=== PATIENT | female | born 1980 | race Caucasian/White ===

== ENCOUNTER → 2024-08-28 09:44 | Outpatient (REF) | payer OTHER, SELFPAY | LOC: RAD 09:44 | PROVIDERS: ATTENDING PHYSICIAN Nurse Practitioner Family; FAMILY PHYSICIAN Emergency Medicine | DX: M79.605 Pain in left leg (principal); Z91.81 History of falling | CPT/HCPCS: 73552 ==

== ENCOUNTER → 2024-09-03 12:57 | Outpatient (REF) | payer OTHER, SELFPAY | LOC: HWRAD 12:57 | PROVIDERS: ATTENDING PHYSICIAN Nurse Practitioner Family | DX: M79.605 Pain in left leg (principal) | CPT/HCPCS: 76882 ==

== ENCOUNTER 2025-03-17 12:02 | Emergency (ER) | payer OTHER, SELFPAY ==
[2025-03-17 12:05] VITALS: BP 104/65
[2025-03-17 12:19] LABS: Hematocrit 41.4 % (37.0-47.0); Hemoglobin 13.8 g/dL (12.0-16.0); Mean Corp Hgb Conc. 33.3 g/dL (33.0-37.0); Mean Corpuscular Volume 86.3 fL (81.0-99.0); Nucleated Red Blood Cells % 0 %; Platelet Count 204 10^3/uL (130-400); Red Cell Dist. Width 13.0 % (11.5-14.5)
[2025-03-17 12:50] VITALS: BMI 24.2
[2025-03-17 12:52] LABS: ALT (SGPT) 18 U/L (0-35); AST (SGOT) 24 U/L (14-36); Albumin 4.4 g/dl (3.5-5.0); Alkaline Phosphatase 54 U/L (38-126); Blood Urea Nitrogen 19 mg/dl (7-17); Calcium 8.9 mg/dl (8.4-10.2); Carbon Dioxide 25 mmol/L (22-30); Chloride 107 mmol/L (98-107); Estimated Creatinine Clearance 93 ml/min; Glucose 94 mg/dl (70-99); Lipase 93 U/L (23-300); Potassium 4.2 mmol/L (3.5-5.1); Sodium 135 mmol/L (135-145); Total Protein 7.4 g/dl (6.3-8.2); eGFR > 60.00
[2025-03-17 12:56] LABS: HCG, Serum Qualitative Screen Negative
[2025-03-17 13:00] VITALS: BP 102/57
[2025-03-17] MEDS: NSS 500 IV (14:11)
[2025-03-17] MEDS: TORADOL 15 MG IV (14:11)
[2025-03-17] MEDS: ZOFRAN 4 MG IV (14:11)
--- NOTE | 2025-03-17 14:16 | ED.GENMED ---
History of Present Illness
General
Chief Complaint: Abdominal Pain
Source: patient
Exam Limitations: none
Time Seen by Provider: 03/17/25 13:24
Nursing documentation reviewed up to this point in time: agreed with
History of Present Illness
History of Present Illness:
45-year-old female with a past medical history as noted presents to the ER for evaluation of abdominal pain. Patient reports onset of symptoms earlier today and they have been constant since that time. She reports pain in the epigastrium that
radiates towards the periumbilical region as well as towards the mid back. She says symptoms seem to be worse when she moves around and seems to be worse after drinking coffee this morning. No relieving factors noted. Associate with nausea and
some dry heaving today. She denies any diarrhea or constipation. She denies any urinary symptoms. She denies any vaginal bleeding. She denies any recent fevers or chills. She denies any other acute complaints. She has a prior history of a
but no other abdominal surgeries. She does report a history of gastroparesis but says symptoms today are different�typical gastroparesis symptoms resolved after vomiting today she had multiple episodes of dry heaving but still having
symptoms.
Past History
Past History
ED Past Medical History: Asthma and Other (Low BP, UTI)
ED Past Surgical History: (X 1) and Tonsilectomy
Social History
Tobacco: Smoker
Alcohol: Occasional
Personal:
Living: with family
Review of Systems
Review of Systems
All Other Systems: ROS reviewed and negative except as documented in HPI and ROS
Constitutional: Denies fever or chills
Respiratory: Denies cough or trouble breathing
Cardiac: Denies chest pain
ABD/GI: Reports abdominal pain, nausea and vomiting (Dry heaving); Denies diarrhea or constipated
: Denies dysuria, flank pain or bleeding
Musculoskeletal: Reports back pain; Denies neck pain
Neurological: Denies dizzy or headache
Phy Exam
Physical Exam
Physical Exam:
General: Awake, alert, oriented x3; no acute distress
Head: Normocephalic, atraumatic
Eyes: Conjunctiva normal, sclera anicteric
Throat: Airway intact, handling secretions
Neck: Trachea midline, supple without meningismus
Lungs: Clear to auscultation bilaterally, no wheezing, rales, rhonchi
Heart: Regular rate and rhythm, no murmurs, gallops, or rubs
Abd: Soft, non distended, mildly tender in epigastrium and periumbilical region but no peritoneal signs and no masses
Back: No CVA tenderness
Neuro: Grossly intact
Skin: No rash in area of concern
Extremities: Warm and well-perfused
Scores
Heart Failure Risk
Heart Failure Risk Score: Not Applicable
Heart Score for Chest Pain Patients
STEMI patient?: Not applicable
Withdrawal Assessment of Alcohol
Withdrawal Assessment Completed?: Not applicable
Course
Orders/Labs/Results
Orders:
Orders
03/17/25 12:10
Test Result ONCE
03/17/25 12:14
Complete Blood Count/With Diff Urgent
Comprehensive Metabolic Panel Urgent
HCG, Serum Qualitative Screen Urgent
Lipase Urgent
03/17/25 13:26
Urinalysis Reflex To Culture Urgent
Date Specimen was Collected: 03/17/25
Time Specimen was Collected: 14:07
03/17/25 14:03
Electrocardiogram (*1) Urgent
Reason for Study: Abdominal Pain
EKG- Treatment ONCE
Troponin I Urgent
Ketorolac [Toradol] 15 mg IV NOW STA
US Abdomen Complete/Upper Urgent
Comment:
Reason For Exam: epigastric pain
03/17/25 14:04
0.9% Sodium Chloride 500 ml [Nss] 500 ml IV BOLUS
Ondansetron Injectable [Zofran] 4 mg IV NOW STA
Abnormal Lab Results
03/17/25
12:14
Absolute Lymphs (auto) 0.5 L 10^3/uL
(1.2-3.4)
Neutrophils % 79.8 H %
(42.2-75.2)
Lymphocytes % 8.6 L %
(20.5-51.1)
BUN 19 H mg/dl
(7-17)
03/17/25 12:14
03/17/25 12:14
Vital Signs
Initial and Last Documented VS:
Initial Vital Signs
Temp Pulse Resp BP Pulse Ox
36.8 C 75 18 104/65 100
03/17/25 12:05 03/17/25 12:05 03/17/25 12:05 03/17/25 12:05 03/17/25 12:05
Last Documented Vital Signs
Temp Pulse Resp BP Pulse Ox
36.8 C 56 16 102/57 100
03/17/25 12:05 03/17/25 13:36 03/17/25 13:36 03/17/25 13:00 03/17/25 13:30
MDM/Problems Addressed
Differential Diagnosis Includes:
Gastritis, enteritis, gastroparesis, PUD, cholelithiasis, cholecystitis, pancreatitis
MDM/Problems Addressed:
45-year-old female presents for evaluation of epigastric pain as described above. Vitals and exam as above. Plan to place an IV and check labs including a CBC and a CMP, lipase. Will check an EKG and troponin. Check an hCG and a urinalysis.
Will check upper abdominal ultrasound. Will treat symptomatically. Reassess after the above.
Chronic conditions affecting care:
Gastroparesis
*Radiology
Radiology exam reviewed: radiology read reviewed
*Pulse Oximetry
SaO2: 100
Oxygen Mode of Delivery: Room air
Patient hypoxic: no (100%)
*Critical Care Note
Total Time (30-74mins, 75-104mins- exclusive of procedures): Not Applicable
Data Reviewed
Review of Other/Old Records Reveals: Labs and Records
Source: patient and records
ED Attending Note
-
Portions of this chart may have been created with voice recognition software.� Occasional wrong word or��sound alike� substitutions may have occurred due to the inherent limitations of voice recognition software.
Discharge Plan
Departure
Prescriptions:
No Action
albuterol sulfate 2.5 MG/3 ML solution for nebulization
2.5 mg inhalation R Q4HPRN PRN (Reason: sob) Qty: 30 0RF
buspirone 5 mg Tablet
5 mg PO BID
albuterol sulfate 90 mcg/actuation Hfa Aerosol Inhaler
1 inh INHALATION PRN PRN (Reason: asthma/allergies)
budesonide-formoterol [Symbicort] 160-4.5 mcg/actuation Hfa Aerosol Inhaler
2 inh INHALATION BID
Referrals:
Mirna Watters MD [Family Provider, Family Practice]
Interventions
Interventions:
*Risk Screen - Suicide Last Done: 03/17/25 12:50
*General Assessment Last Done: 03/17/25 12:50
*Neglect/Abuse Screening Last Done: 03/17/25 12:50
*ED- Fall Risk Assessment Last Done: 03/17/25 12:50
*ED COVID-19 Vaccine History Last Done: 03/17/25 12:50
ZX-Nwlsub-Szbidfptcv Assessment Last Done: 03/17/25 12:50
Discharge Date and Time
Print Language: FRENCH
[2025-03-17 14:29] LABS: Urine Character Clear (Clear)
[2025-03-17 14:44] LABS: Urine White Cell 0-2 /HPF (0-5)
[2025-03-17 14:50] LABS: Troponin I < 0.012 ng/ml
== END 2025-03-17 17:18 | disposition home or self-care (01) ==
LOC: EMR 12:02
PROVIDERS: Emergency Medicine; EMERGENCY PHYSICIAN Emergency Medicine; FAMILY PHYSICIAN Family Medicine
DX: R10.9 Unspecified abdominal pain (principal); K31.84 Gastroparesis; J45.909 Unspecified asthma, uncomplicated; F17.200 Nicotine dependence, unspecified, uncomplicated
CPT/HCPCS: 96374; 96375; 96361; 99284; 76700; 80053; 81003; 81015; 83690; 84484; 84703; 85025; 93005